=== PATIENT | male | born 1990 | race Hispanic/Latino ===

== ENCOUNTER 2017-07-24 14:51 | Inpatient (IN) | payer MEDICARE, MEDICAID ==
[2017-07-24 14:51] VITALS: BMI 31.1
--- NOTE | 2017-07-24 15:22 | C.PDOC ---
History Of Present Illness 26-YEAR-OLD MALE, PRESENTS TO THE EMERGENCY DEPARTMENT WITH COMPLAINTS OF HEARING VOICES THAT ARE TELLING HIM TO HURT HIMSELF. PATIENT ADMITS TO SUICIDAL IDEATION BUT HAS NO PLAN. PATIENT HAS NOT TAKEN ANY MEDICATION SINCE 04/05. HE TRIES TO FOLLOW UP OUTPATIENT BUT STATES NO ONE WANTS HIM. DENIES HOMICIDAL IDEATION. EXAM CALM, COOPERATIVE ACTIVE AUDITORY HALLUCINATIONS Time Seen by Provider: 07/24/17 15:18 Chief Complaint (Nursing): Psychiatric Evaluation History Per: Patient History/Exam Limitations: no limitations Onset/Duration Of Symptoms: Days Current Symptoms Are (Timing): Still Present Past Medical History Reviewed: Historical Data, Nursing Documentation, Vital Signs Vital Signs: Last Vital Signs Temp 97.8 F 07/24/17 14:55 Pulse 94 H 07/24/17 14:55 Resp 16 07/24/17 14:55 BP 135/85 07/24/17 14:55 Pulse Ox 95 07/24/17 16:27 - Medical History PMH: Anxiety, Arthritis, Asthma, Bipolar Disorder, Depression, Migraine, Post Traumatic Stress Disorder, Chronic Kidney Disease (alleged chronic kidney disease), Schizophrenia - [facility] Procedures DRUG ADDICT COUNSELLING (12/30/14) EXCISION OF TOE NAIL, EXTERNAL APPROACH (10/08/16) EXTRACTION OF TOE NAIL, EXTERNAL APPROACH (11/30/16) GROUP PSYCHOTHERAPY (04/13/17) INDIVID PSYCHOTHERAP NEC (08/12/14) INDIVIDUAL PSYCHOTHERAPY, BEHAVIORAL (10/30/16) INDIVIDUAL PSYCHOTHERAPY, COGNITIVE-BEHAVIORAL (09/11/16) INDIVIDUAL PSYCHOTHERAPY, SUPPORTIVE (03/02/16) INTRODUCTION OF SERUM/TOX/VACCINE INTO MUSCLE, PERC APPROACH (09/11/16) MEDICATION MANAGEMENT (10/08/16) OTHER GROUP THERAPY (12/30/14) PSYCHIAT DRUG THERAP NEC (07/08/14) Family History: States: Unknown Family Hx - Social History Hx Tobacco Use: Yes Hx Alcohol Use: No Hx Substance Use: Yes - Immunization History Hx Tetanus Toxoid Vaccination: Yes Hx Influenza Vaccination: Yes Hx Pneumococcal Vaccination: No Review Of Systems Except As Marked, All Systems Reviewed And Found Negative. Constitutional: Negative for: Fever Cardiovascular: Negative for: Chest Pain Respiratory: Negative for: Shortness of Breath Gastrointestinal: Negative for: Vomiting Musculoskeletal: Negative for: Back Pain Neurological: Negative for: Weakness, Numbness Psych: Positive for: Suicidal ideation Physical Exam - Physical Exam Appears: Non-toxic, No Acute Distress, Other (CALM, COOPERATIVE) Skin: Warm, Dry, No Rash Head: Atraumatic, Normacephalic Eye(s): bilateral: Normal Inspection Nose: Normal Oral Mucosa: Moist Lips: Normal Appearing Neck: Normal ROM Chest: Symmetrical Cardiovascular: Rhythm Regular, No Murmur Respiratory: Normal Breath Sounds, No Accessory Muscle Use Extremity: Normal ROM Neurological/Psych: Oriented x3, Normal Speech ED Course And Treatment - Laboratory Results Result Diagrams: 07/24/17 16:00 07/24/17 16:00 O2 Sat by Pulse Oximetry: 95 (RA) Pulse Ox Interpretation: Normal Progress - Re-Evaluation Re-evaluation Note: 07/24/17 16:27 MED CLEAR FOR PSYCH EVAL. CRISIS NOTIFIED - Data Reviewed Data Reviewed: Lab, Old records Disposition - Disposition Disposition: HOSPITALIZED Disposition Time: 17:00 Condition: STABLE Forms: [facility] (Icelandic) - POA Present On Arrival: None - Clinical Impression Clinical Impression: Schizoaffective disorder - Scribe Statement The provider has reviewed the documentation as recorded by the Scribe (Kaity Salamanca) All medical record entries made by the Scribe were at my direction and personally dictated by me. I have reviewed the chart and agree that the record accurately reflects my personal performance of the history, physical exam, medical decision making, and the department course for this patient. I have also personally directed, reviewed, and agree with the discharge instructions and disposition. Decision To Admit - Pt Status Changed To: Hospital Disposition Of: Inpatient - Admit Certification Admit to Inpatient:: After my assessment, the patient will require hospitalization for at least two midnights. This is because of the severity of symptoms shown, intensity of services needed, and/or the medical risk in this patient being treated as an outpatient. - InPatient: Physician Admission Certification: I certify that this patient requires 2 or more midnights of care for the following reason:: SEE NOTE - . Bed Request Type: Psychiatry Admitting Physician: Tamie Canales Patient Diagnosis: Schizoaffective disorder
[2017-07-24 16:04] LABS: BASO # 0.1 K/uL (0.0-0.2); BASO % 0.6 % (0.0-2.0); EOS # 0.2 K/uL (0.0-0.7); EOS % 1.5 % (0.0-4.0); HEMOGLOBIN 15.5 g/dL (12.0-18.0); LYMPH # 2.9 K/uL (1.0-4.3); LYMPH % 26.4 % (20.0-40.0); MEAN CORPUSCULAR HEMOGLOBIN 32.9 pg (27.0-31.0); MEAN PLATELET VOLUME 8.4 fL (7.2-11.7); MONO # 0.7 K/uL (0.0-0.8); MONO % 6.5 % (0.0-10.0); NEUT # 7.1 K/uL (1.8-7.0); RBC 4.73 Mil/uL (4.40-5.90); RED CELL DISTRIBUTION WIDTH 13.7 % (11.5-14.5); WHITE BLOOD COUNT 10.9 K/uL (4.8-10.8)
[2017-07-24 16:06] LABS: URINE BILIRUBIN NEGATIVE (NEGATIVE); URINE BLOOD NEGATIVE (NEGATIVE); URINE CLARITY Clear (Clear); URINE COLOR Yellow (YELLOW); URINE GLUCOSE (UA) NORMAL (Normal); URINE LEUKOCYTE ESTERASE NEG Leu/uL (Negative); URINE NITRATE NEGATIVE (NEGATIVE); URINE PROTEIN NEGATIVE (NEGATIVE)
[2017-07-24 16:18] LABS: ALB/GLOB RATIO 1.4 (1.0-2.1); ALBUMIN 4.3 g/dL (3.5-5.0); ALT/SGPT 27 U/L (21-72); AST/SGOT 28 U/L (17-59); BLOOD UREA NITROGEN 12 mg/dL (9-20); CALCIUM 9.6 mg/dl (8.6-10.4); GFR AFRICAN-AMERICAN > 60; GFR NON-AFRICAN AMERICAN > 60
[2017-07-24 16:24] LABS: BARBITURATES, UR NEGATIVE (NEGATIVE); BENZODIAZEPINES, UR NEGATIVE (NEGATIVE); OPIATES, UR NEGATIVE (NEGATIVE); PHENCYCLIDINE, UR NEGATIVE (NEGATIVE)
--- NOTE | 2017-07-24 18:39 | PCM.BM ---
<Nyasia Park - Last Filed: 07/24/17 18:37> Treatment Plan Problems - Problems identified on initial assessmt Auditory Hallucination Date Initiated: 07/24/17 Time Initiated: 18:38 Assessment reference: NA Status: Active Suicidal Ideation Date Initiated: 07/24/17 Time Initiated: 18:38 Assessment reference: NA Status: Active Treatment assets and liabiliti Patient Assests: adapts well, educated, ADL independent, physically healthy, negotiates basic needs, cognitively intact Patient Liabilities: live alone, financial problems, substance abuse ([place], + THC), medical problems (Hx Asthma, Migraine) - Milieu Protocol Maintain good personal hygiene: daily Encourage regular showers, daily Remind patient to perform daily oral care, other Assist patient to perform ADL's (Self) Conduct patient checks and document Observation sheet: Q15 minutes (For safety) Maintain personal safety: every shift Educate patient to report safety concerns to staff, every shift Monitor environment for contraband/sharps Medication safety: Monitor for expected outcome, potential side effects: every shift, Assess barriers to learning: every shift, Assess readiness for medication education: every shift <Josephine Sharp - Last Filed: 07/25/17 10:57> Family Contact Family involvement: Famliy/SO not involved - Goals for Treatment Patient goals for treatment: "I need my meds." Discharge/Continuing Care - Education Needs Education Needs: Patient Medication, Patient Coping Skills - Discharge Discharge Criteria: Tolerates medication w/o severe side effects, Free of Suicidal thoughts, Reduction of target symptoms Discharge to:: Home - Treatment Team Participation Discussed with Family/SO: No Was Patient/Family/SO present at Treatment Team Meeting: Yes <Tamie Canales - Last Filed: 07/25/17 11:03> - Diagnosis (1) Schizoaffective disorder Status: Acute Interventions: 07/25/17 11:02 * Assess/adjust medications daily and /or as needed * See patient on an individual basis 7x/week to assess status of hallucinations * Discuss risks, benefits, side effects and alternatives of medications * (2) Cannabis abuse Status: Chronic Interventions: 07/25/17 11:03 * Assess 7x/week regarding severity of withdrawal * Educate regarding risks, benefits, side effects and alternatives of medications * Use Motivational Interviewing for abstinence * Use CBT for relapse prevention * Medication management for withdrawal symptoms * Encourage medication assisted treatment *
[2017-07-24] MEDS ORDERED: Albuterol HFA 90 mcg/actuation (8 g) INH PRN (18:58)
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
[2017-07-26 06:09] VITALS: O2SAT 98
--- NOTE | 2017-07-26 15:54 | PCM.PYCHPN ---
Psychiatric Progress Note - Psychiatric Progress Note Patient seen today, length of contact: 15 min Patient Chief Complaint: "I'm still feeling down and still hearing voices." Problems Identified/Issues Discussed: Patient seen and evaluated, chart reviewed and discussed with the nurse. Patient remained disorganized and internally preoccupied. Patient still appears paranoid and delusional. He reports depressed mood and feelings of hopelessness and helplessness. Patient remained isolated, confined and withdrawn. Pt c/o KEITH and nausea following geodon, states he will not take anymore geodon moving forward because the motrin he was given for the KEITH didnt help and he prefers excedrin. He is still hearing voices- they whisper my name all night long. Pt wants to go to [facility] in [facility] after D/C. Symptoms are improving but need more time to stabilize. Support and psychoeducation given. Medication Change: Yes (Increase thorazine) Medical Record Reviewed: Yes Mental Status Examination - Cognitive Function Orientation: Person, Place, Situation, Time Memory: Intact Attention: WNL Concentration: Poor Association: Loose Fund of Knowledge: Poor - Mood Mood: Depressed, Anxious - Affect Affect: Flat - Speech Speech: Appropriate - Formal Thought Process Formal Thought Process: Hallucinations, Delusions, Paranoia, Loosening of associations - Suicidal Ideation Suicidal Ideation: No - Homicidal Ideation Homicidal Ideation: No Goal/Treatment Plan - Goal/Treatment Plan Need for Continued Stay: Remain at risks for inpatient hospitalization, Severe functional impairment Progress Toward Problem(s) and Goals/Treatment Plan: Schizoaffective disorder -bipolar type -CBT -Psychoeducation -Supportive therapy, group therapy, individual therapy -Geodone 20 mg by mouth twice daily -Thorazine 100 mg PO HS -Other medications as needed -Start Chlorpromazine 50 mg PO Daily Cannabis use disorder severe -CBT -Psychoeducation Estimated Date of D/C: 08/01/17 - Smoking Cessation Smoking Cessation Initiated: No
[2017-07-27 06:41] VITALS: RESP 18; TEMP 97.6
[2017-07-27 08:22] VITALS: BP 107/75; PULSE 78
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
== END 2017-07-27 11:16 | disposition home or self-care (01) | DRG 885 ==
LOC: C.ER 14:51 → C.5E 17:00
PROVIDERS: ADMIT Psychiatry & Neurology Psychiatry; ATTEND Psychiatry & Neurology Psychiatry
PROC: GZ56ZZZ Individual Psychotherapy, Supportive (ICD-10-PCS; principal; 2017-07-24)
DX: F25.0 Schizoaffective disorder, bipolar type (principal); Z91.14 Patient's other noncompliance with medication regimen; F12.10 Cannabis abuse, uncomplicated; J45.909 Unspecified asthma, uncomplicated; Z87.891 Personal history of nicotine dependence

== ENCOUNTER 2017-08-13 08:33 | Emergency (ER) | payer MEDICARE, MEDICAID ==
[2017-08-13 08:34] VITALS: BMI 31.7
[2017-08-13] MEDS ORDERED: Sodium Chloride 0.9% 1,000 ML IV ONE (09:37)
[2017-08-13 10:13] LABS: BASO # 0.2 K/uL (0.0-0.2); BASO % 1.2 % (0.0-2.0); EOS # 0.2 K/uL (0.0-0.7); EOS % 1.1 % (0.0-4.0); HEMOGLOBIN 14.4 g/dL (12.0-18.0); LYMPH # 2.8 K/uL (1.0-4.3); LYMPH % 20.1 % (20.0-40.0); MEAN CELL VOLUME 93.6 fL (80.0-94.0); MEAN CORPUSCULAR HEMOGLOBIN 32.3 pg (27.0-31.0); MEAN CORPUSCULAR HGB CONC 34.6 g/dL (33.0-37.0); MONO % 7.6 % (0.0-10.0); NEUT # 9.6 K/uL (1.8-7.0); RBC 4.45 Mil/uL (4.40-5.90); RED CELL DISTRIBUTION WIDTH 13.4 % (11.5-14.5); WHITE BLOOD COUNT 13.7 K/uL (4.8-10.8)
[2017-08-13] MEDS ORDERED: Sodium Chloride 0.9% 1,000 ML ONE (10:13)
[2017-08-13 10:24] LABS: ALB/GLOB RATIO 1.4 (1.0-2.1); ALBUMIN 4.2 g/dL (3.5-5.0); ALT/SGPT 31 U/L (21-72); AST/SGOT 37 U/L (17-59); BLOOD UREA NITROGEN 15 mg/dL (9-20); CALCIUM 9.4 mg/dl (8.6-10.4); GFR AFRICAN-AMERICAN > 60; GFR NON-AFRICAN AMERICAN > 60; LIPASE 181 U/L (23-300)
[2017-08-13 11:08] VITALS: BP 124/79; PULSE 89; RESP 16; TEMP 97.9; O2SAT 100
--- NOTE | 2017-08-13 11:29 | C.PDOC ---
History Of Present Illness 26 y/o male presents to ED with complaints of 3 episodes of vomiting and abdominal pain that began last night. Patient reports that he noted small streak of blood in vomitus. Denies fever or cough. Chief Complaint (Nursing): GI Problem History Per: Patient History/Exam Limitations: no limitations Onset/Duration Of Symptoms: Hrs Current Symptoms Are (Timing): Still Present Radiation Of Pain To:: None Quality Of Discomfort: Unable To Describe Associated Symptoms: Vomiting (3 episodes ). denies: Fever, Chills Exacerbating Factors: None Alleviating Factors: None Recent travel outside of the [place]: No Past Medical History Reviewed: Historical Data, Nursing Documentation, Vital Signs Vital Signs: Last Vital Signs Temp 97.9 F 08/13/17 11:07 Pulse 89 08/13/17 11:07 Resp 16 08/13/17 11:07 BP 124/79 08/13/17 11:07 Pulse Ox 100 08/13/17 11:32 - Medical History PMH: Anxiety, Arthritis, Asthma, Bipolar Disorder, Depression, Migraine, Post Traumatic Stress Disorder - [facility] Procedures DRUG ADDICT COUNSELLING (12/30/14) EXCISION OF TOE NAIL, EXTERNAL APPROACH (10/08/16) EXTRACTION OF TOE NAIL, EXTERNAL APPROACH (11/30/16) GROUP PSYCHOTHERAPY (04/13/17) INDIVID PSYCHOTHERAP NEC (08/12/14) INDIVIDUAL PSYCHOTHERAPY, BEHAVIORAL (10/30/16) INDIVIDUAL PSYCHOTHERAPY, COGNITIVE-BEHAVIORAL (09/11/16) INDIVIDUAL PSYCHOTHERAPY, SUPPORTIVE (07/24/17) INTRODUCTION OF SERUM/TOX/VACCINE INTO MUSCLE, PERC APPROACH (09/11/16) MEDICATION MANAGEMENT (10/08/16) OTHER GROUP THERAPY (12/30/14) PSYCHIAT DRUG THERAP NEC (07/08/14) Family History: States: Unknown Family Hx - Social History Hx Tobacco Use: Yes Hx Alcohol Use: No Hx Substance Use: Yes - Immunization History Hx Tetanus Toxoid Vaccination: Yes Hx Influenza Vaccination: Yes Hx Pneumococcal Vaccination: No Review Of Systems Constitutional: Negative for: Fever, Chills Cardiovascular: Negative for: Chest Pain Respiratory: Negative for: Cough, Shortness of Breath Gastrointestinal: Positive for: Vomiting (noted small streak of blood ), Abdominal Pain. Negative for: Diarrhea Neurological: Negative for: Weakness, Numbness Physical Exam - Physical Exam Appears: Well, Non-toxic, No Acute Distress Skin: Normal Color, Warm, Dry Head: Atraumatic, Normacephalic Eye(s): bilateral: Normal Inspection Oral Mucosa: Moist Neck: Supple Chest: Symmetrical, No Tenderness Cardiovascular: Rhythm Regular Respiratory: Normal Breath Sounds, No Decreased Breath Sounds, No Rales, No Rhonchi, No Wheezing Gastrointestinal/Abdominal: Soft, No Tenderness, No Distention, No Guarding, No Rebound Neurological/Psych: Oriented x3, Normal Speech, Normal Cognition ED Course And Treatment - Laboratory Results Result Diagrams: 08/13/17 10:05 08/13/17 10:05 O2 Sat by Pulse Oximetry: 100 (RA) Pulse Ox Interpretation: Normal Medical Decision Making Medical Decision Making: Ordered blood work. Administered Antivert, Pepcid, Reglan and IV fluids. Disposition - Disposition Referrals: [facility] [Outside] [facility] [Outside] Disposition: HOME/ ROUTINE Disposition Time: 10:25 Condition: IMPROVED Additional Instructions: Thank you for letting us take care of you today. The emergency medical care you received today was directed at your acute symptoms. If you were prescribed any medication, please fill it and take as directed. It may take several days for your symptoms to resolve. Return to the Emergency Department if your symptoms worsen, do not improve, or if you have any other problems. Please contact your doctor or call one of the physicians/clinics you have been referred to that are listed on the Patient Visit Information form that is included in your discharge packet. Bring any paperwork you were given at discharge with you along with any medications you are taking to your follow up visit. Our treatment cannot replace ongoing medical care by a primary care provider (PCP) outside of the emergency department. Thank you for allowing the [facility] team to be part of your care today. Follow up with the clinic this week for outpatient care. Follow up with your staff midwife/apprenticeship director this week as scheduled. Prescriptions: Gabapentin [Neurontin] 300 mg PO DAILY #5 cap Meclizine [Meclizine*] 25 mg PO Q6 PRN #20 tab PRN Reason: Dizziness Ranitidine HCl [Zantac] 150 mg PO BID #20 tablet Instructions: Gastritis Forms: [facility] (Monegasque) - Clinical Impression Clinical Impression: Gastritis - Scribe Statement The provider has reviewed the documentation as recorded by the Scribe Ayaka Lane All medical record entries made by the Scribe were at my direction and personally dictated by me. I have reviewed the chart and agree that the record accurately reflects my personal performance of the history, physical exam, medical decision making, and the department course for this patient. I have also personally directed, reviewed, and agree with the discharge instructions and disposition.
== END 2017-08-13 11:09 | disposition home or self-care (01) ==
LOC: C.ER 08:33
DX: K29.70 Gastritis, unspecified, without bleeding (principal); Z72.0 Tobacco use
CPT/HCPCS: 80053; 83690; 85025; 96361; 96374; 96375; 99285; J2765; J7040

== ENCOUNTER 2017-08-27 23:38 | Inpatient (IN) | payer MEDICARE, MEDICAID ==
[2017-08-27 23:39] VITALS: BMI 31.7
[2017-08-27 23:47] VITALS: O2SAT 96
--- NOTE | 2017-08-28 00:59 | C.PDOC ---
History Of Present Illness Patient seen tonite due to episode of depression and suicidal ideation. Time Seen by Provider: 08/28/17 00:59 Chief Complaint (Nursing): Psychiatric Evaluation History Per: Patient History/Exam Limitations: no limitations Onset/Duration Of Symptoms: Days Current Symptoms Are (Timing): Still Present Suicide/Self Injury Attempted (Context): None Modifying Factor(s): None Severity: Moderate Pain Scale Rating Of: 0 Associated Symptoms: Depression, Suicidal Plan Involuntary Hold By: None Recent travel outside of the [place]: No Past Medical History Vital Signs: Last Vital Signs Temp 97.5 F L 08/27/17 23:41 Pulse 75 08/27/17 23:41 Resp 20 08/27/17 23:41 BP 118/82 08/27/17 23:41 Pulse Ox 96 08/28/17 04:26 - Medical History PMH: Anxiety, Arthritis, Asthma, Bipolar Disorder, Depression, Migraine, Post Traumatic Stress Disorder Denies: Diabetes, Hepatitis, HIV, HTN, Chronic Kidney Disease, Schizophrenia , Seizures, Sexually Transmitted Disease Surgical History: No Surg Hx - [facility] Procedures DRUG ADDICT COUNSELLING (12/30/14) EXCISION OF TOE NAIL, EXTERNAL APPROACH (10/08/16) EXTRACTION OF TOE NAIL, EXTERNAL APPROACH (11/30/16) GROUP PSYCHOTHERAPY (04/13/17) INDIVID PSYCHOTHERAP NEC (08/12/14) INDIVIDUAL PSYCHOTHERAPY, BEHAVIORAL (10/30/16) INDIVIDUAL PSYCHOTHERAPY, COGNITIVE-BEHAVIORAL (09/11/16) INDIVIDUAL PSYCHOTHERAPY, SUPPORTIVE (07/24/17) INTRODUCTION OF SERUM/TOX/VACCINE INTO MUSCLE, PERC APPROACH (09/11/16) MEDICATION MANAGEMENT (10/08/16) OTHER GROUP THERAPY (12/30/14) PSYCHIAT DRUG THERAP NEC (07/08/14) Family History: States: Unknown Family Hx - Social History Hx Tobacco Use: Yes Hx Alcohol Use: No Hx Substance Use: Yes - Immunization History Hx Tetanus Toxoid Vaccination: Yes Hx Influenza Vaccination: Yes Hx Pneumococcal Vaccination: No Review Of Systems Constitutional: Negative for: Fever, Chills, Sweats ENT: Negative for: Ear Pain, Ear Discharge, Nose Pain, Nose Discharge Cardiovascular: Negative for: Chest Pain, Palpitations, Orthopnea, Edema, Light Headedness Respiratory: Negative for: Cough, Shortness of Breath, Hemoptysis Gastrointestinal: Negative for: Nausea, Vomiting, Abdominal Pain, Diarrhea Genitourinary: Negative for: Dysuria, Frequency, Incontinence Musculoskeletal: Negative for: Neck Pain, Shoulder Pain, Arm Pain Skin: Negative for: Rash, Lesions Neurological: Negative for: Weakness, Numbness, Incoordination, Change in Speech , Confusion, Seizures, Altered Mental Status, Headache, Dizziness Psych: Positive for: Depression, Suicidal ideation Physical Exam - Physical Exam Appears: Well, No Acute Distress Skin: Normal Color, Warm, Dry Head: Atraumatic Eye(s): bilateral: Normal Inspection, PERRL, EOMI Nose: Normal Oral Mucosa: Moist Tongue: Normal Appearing Throat: Normal Neck: Normal Chest: Symmetrical, No Deformity, No Tenderness Cardiovascular: Rhythm Regular Respiratory: Normal Breath Sounds Gastrointestinal/Abdominal: Normal Exam Back: Normal Inspection Extremity: Normal ROM ED Course And Treatment - Laboratory Results Result Diagrams: 08/28/17 01:42 08/28/17 01:42 O2 Sat by Pulse Oximetry: 96 Disposition Discussed With : Vonda Saha Doctor Will See Patient In The: Hospital Counseled Patient/Family Regarding: Diagnosis - Disposition Disposition: HOSPITALIZED Disposition Time: 04:26 Condition: STABLE Forms: [facility] ([place]ese) - Clinical Impression Clinical Impression: Schizo affective schizophrenia
[2017-08-28 01:45] LABS: BASO # 0.1 K/uL (0.0-0.2); BASO % 0.6 % (0.0-2.0); EOS # 0.3 K/uL (0.0-0.7); EOS % 3.1 % (0.0-4.0); HEMOGLOBIN 15.4 g/dL (12.0-18.0); LYMPH # 4.1 K/uL (1.0-4.3); LYMPH % 40.2 % (20.0-40.0); MEAN CELL VOLUME 93.7 fL (80.0-94.0); MEAN CORPUSCULAR HEMOGLOBIN 32.5 pg (27.0-31.0); MEAN CORPUSCULAR HGB CONC 34.7 g/dL (33.0-37.0); MEAN PLATELET VOLUME 8.3 fL (7.2-11.7); MONO # 0.8 K/uL (0.0-0.8); MONO % 8.1 % (0.0-10.0); NEUT # 4.9 K/uL (1.8-7.0); NRBC % 0.1 % (0.0-2.0); RBC 4.73 Mil/uL (4.40-5.90); RED CELL DISTRIBUTION WIDTH 13.6 % (11.5-14.5); WHITE BLOOD COUNT 10.2 K/uL (4.8-10.8)
[2017-08-28 01:58] LABS: ALB/GLOB RATIO 1.5 (1.0-2.1); ALBUMIN 4.3 g/dL (3.5-5.0); ALT/SGPT 42 U/L (21-72); AST/SGOT 25 U/L (17-59); BLOOD UREA NITROGEN 14 mg/dL (9-20); CALCIUM 9.2 mg/dl (8.6-10.4); GFR AFRICAN-AMERICAN > 60; GFR NON-AFRICAN AMERICAN > 60
[2017-08-28 03:02] LABS: URINE BILIRUBIN NEGATIVE (NEGATIVE); URINE BLOOD NEGATIVE (NEGATIVE); URINE CLARITY Clear (Clear); URINE COLOR Yellow (YELLOW); URINE GLUCOSE (UA) NORMAL (Normal); URINE LEUKOCYTE ESTERASE TRACE Leu/uL (Negative); URINE PROTEIN NEGATIVE (NEGATIVE); URINE UROBILINOGEN NORMAL mg/dL (0.2-1.0)
[2017-08-28 03:06] LABS: BARBITURATES, UR NEGATIVE (NEGATIVE); BENZODIAZEPINES, UR NEGATIVE (NEGATIVE); OPIATES, UR NEGATIVE (NEGATIVE)
[2017-08-28 03:23] LABS: PHENCYCLIDINE, UR POSITIVE (NEGATIVE)
--- NOTE | 2017-08-28 06:27 | PCM.BM ---
<Kacy Lopez - Last Filed: 08/28/17 06:26> Treatment Plan Problems - Problems identified on initial assessmt Auditory Hallucinations Date Initiated: 08/28/17 Time Initiated: 05:55 Assessment reference: NA Status: Active Depression Date Initiated: 08/28/17 Time Initiated: 05:55 Assessment reference: NA Status: Active Treatment assets and liabiliti Patient Assests: adapts well, cooperative, educated, ADL independent, physically healthy, negotiates basic needs, cognitively intact Patient Liabilities: poor support system ("No family or friends who provide emotional support"), substance abuse (PCP, Marijuana), medical problems, auditory impairment, language/speech - Milieu Protocol Maintain good personal hygiene: daily Encourage regular showers, daily Remind patient to perform daily oral care Conduct patient checks and document Observation sheet: Q15 minutes Maintain personal safety: every shift Educate patient to report safety concerns to staff, every shift Monitor environment for contraband/sharps Medication safety: Monitor for expected outcome, potential side effects: every shift, Assess barriers to learning: every shift, Assess readiness for medication education: every shift <Josephine Sharp - Last Filed: 08/29/17 10:50> Family Contact Family involvement: Family/SO is involved - Goals for Treatment Patient goals for treatment: "I want to leave." Discharge/Continuing Care - Education Needs Education Needs: Patient Medication, Patient Coping Skills - Discharge Discharge Criteria: Tolerates medication w/o severe side effects, Reduction of target symptoms Discharge to:: Long Term - Treatment Team Participation Discussed with Family/SO: No Was Patient/Family/SO present at Treatment Team Meeting: No (Pt refused to sign treatment plan.) <Vi Harman - Last Filed: 08/30/17 23:26> - Diagnosis (1) Schizoaffective disorder Status: Acute Interventions: 08/30/17 23:25 * Assess/adjust medications daily and /or as needed * See patient on an individual basis 7x/week to assess symptoms of depression * Monitor for side effects & effectiveness of medications * (2) Borderline personality disorder Status: Chronic Interventions: 08/30/17 23:25 * Assess/adjust medications daily and /or as needed * See patient on an individual basis 7x/week to assess level of manic behaviors and stability * Discuss risks, benefits, side effects and alternatives of medications *
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
[2017-08-29] MEDS ORDERED: Venlafaxine 37.5 mg ER Cap PO SCH (10:00)
--- NOTE | 2017-08-29 10:05 | PCM.PYCHDC ---
Mental Status Examination - Mental Status Examination Orientation: Person, Place, Situation, Time Memory: Intact Mood: Other (irate) Affect: Broad Speech: Appropriate Attention: WNL Concentration: WNL Language: Word Retrieval Association: WNL Fund of Knowledge: WNL Formal Thought Process: No Impairment Description of patient's judgement and insight: Poor Psychotic Thoughts and Behaviors: None Suicidal Ideation: No Current Homicidal Ideation?: No Discharge Summary - Discharge Note Reason for Hospitalization: Feeling depressed and hearing voices. Consultations:: List each consultation separately and include: 1. Reason for request. 2. Findings. 3. Follow-up Summary of Hospital Course include:: 1. Description of specific treatment plan utilized for patients during their course of treatmen. 2. Summarize the time- course for resolution of acute symptoms and/or regressed behaviors. 3. Describe issues identified and worked on during hospitalization. 4. Describe medication utilized. 5. Describe medical problems identified and treated. 6. Reassessment of suicide risk Summary of Hospital Course: The pt was admitted and plan was made to start treatment with psychotherapy, support, psychoeducation and medications. Patient became agitated and began arguing with patients and staff. This is not uncommon for this patient. The pt did not attend groups and activities, as well as milieu therapy. The pt did not stay for recommended length of time in order to show improvement with the treatments provided. He put in a 48 hr notice. Denied any suicidal or homicidal ideations at the time of discharge. After care discussed with the patient. He is also advised to get intensive individual psychotherapy and he agreed. - Final Diagnosis (DSM 5) Condition upon Discharge: STABLE DSM 5: Schizoaffective disorder r/o Malingering Borderline Personality d/o Antisocial personality d/o Disposition: AGAINST MEDICAL ADVICE Follow-up Treatment Plan: Follow after care plan as discussed. Use relapse prevention skills Return to ER or call 911 if suicidal, homicidal or symptoms relapse. Stay away from stress, alcohol and drugs. See primary doctor regularly and get labs. - Smoking Cessation Smoking Cessation Medication prescribed: No - Antipsychotic Medications Pt discharged on 2 or more routine antipsychotic medications: No
[2017-08-29 11:30] VITALS: BP 110/79; PULSE 82; RESP 20; TEMP 97.6
== END 2017-08-29 10:55 | disposition left against medical advice (07) | DRG 885 ==
LOC: C.ER 23:38 → C.5E 08-28 05:26
PROVIDERS: ADMIT Psychiatry & Neurology Psychiatry; ATTEND Psychiatry & Neurology Psychiatry
PROC: GZHZZZZ Group Psychotherapy (ICD-10-PCS; principal; 2017-08-28)
PROC: GZ56ZZZ Individual Psychotherapy, Supportive (ICD-10-PCS; 2017-08-28)
DX: F25.1 Schizoaffective disorder, depressive type (principal); R45.851 Suicidal ideations; F43.10 Post-traumatic stress disorder, unspecified; F17.210 Nicotine dependence, cigarettes, uncomplicated; F31.9 Bipolar disorder, unspecified; F41.9 Anxiety disorder, unspecified; J45.909 Unspecified asthma, uncomplicated; G43.909 Migraine, unspecified, not intractable, without status migrainosus

== ENCOUNTER 2018-01-12 15:09 | Emergency (ER) | payer MEDICARE, MEDICAID ==
[2018-01-12 15:10] VITALS: BMI 32.0
[2018-01-12 15:16] VITALS: RESP 18
--- NOTE | 2018-01-12 15:27 | C.PDOC ---
History Of Present Illness 27 y/o male presents to ED with c/o feeling depressed, stating he wants to jump in front of car. Patient denies HI, auditory or visual hallucinations. No other complications at this time. Time Seen by Provider: 01/12/18 15:18 Chief Complaint (Nursing): Psychiatric Evaluation History Per: Patient History/Exam Limitations: no limitations Onset/Duration Of Symptoms: Days Current Symptoms Are (Timing): Still Present Suicide/Self Injury Attempted (Context): None Associated Symptoms: Depression, Suicidal Thoughts Past Medical History Reviewed: Historical Data, Nursing Documentation, Vital Signs Vital Signs: Last Vital Signs Temp 98.8 F 01/12/18 18:13 Pulse 88 01/12/18 18:13 Resp 18 01/12/18 18:13 BP 143/87 01/12/18 18:13 Pulse Ox 100 01/12/18 18:13 - Medical History PMH: Anxiety, Arthritis, Asthma, Bipolar Disorder, Depression, Migraine, Post Traumatic Stress Disorder, Schizophrenia Surgical History: No Surg Hx - [facility] Procedures DRUG ADDICT COUNSELLING (12/30/14) EXCISION OF TOE NAIL, EXTERNAL APPROACH (10/08/16) EXTRACTION OF TOE NAIL, EXTERNAL APPROACH (11/30/16) GROUP PSYCHOTHERAPY (11/29/17) INDIVID PSYCHOTHERAP NEC (08/12/14) INDIVIDUAL PSYCHOTHERAPY, BEHAVIORAL (11/29/17) INDIVIDUAL PSYCHOTHERAPY, COGNITIVE-BEHAVIORAL (09/11/16) INDIVIDUAL PSYCHOTHERAPY, SUPPORTIVE (08/28/17) INTRODUCTION OF SERUM/TOX/VACCINE INTO MUSCLE, PERC APPROACH (09/11/16) MEDICATION MANAGEMENT (10/08/16) OTHER GROUP THERAPY (12/30/14) PSYCHIAT DRUG THERAP NEC (07/08/14) Family History: States: No Known Family Hx - Social History Hx Tobacco Use: Yes Hx Alcohol Use: No Hx Substance Use: Yes (PCP, Marijuana) - Immunization History Hx Tetanus Toxoid Vaccination: Yes Hx Influenza Vaccination: Yes Hx Pneumococcal Vaccination: No Review Of Systems Constitutional: Negative for: Fever, Chills Cardiovascular: Negative for: Chest Pain Respiratory: Negative for: Shortness of Breath Psych: Positive for: Depression, Suicidal ideation. Negative for: Withdrawal Physical Exam - Physical Exam Appears: Non-toxic, No Acute Distress Skin: Warm, Dry, No Rash Head: Atraumatic, Normacephalic Eye(s): bilateral: Normal Inspection Oral Mucosa: Moist Neck: Normal ROM, Supple Cardiovascular: Rhythm Regular Respiratory: Normal Breath Sounds, No Rales, No Rhonchi, No Wheezing Gastrointestinal/Abdominal: Soft, No Tenderness, No Guarding, No Rebound Back: No CVA Tenderness Extremity: Normal ROM, Capillary Refill (<2 seconds) Neurological/Psych: Oriented x3, Normal Speech, Normal Cognition ED Course And Treatment - Laboratory Results Result Diagrams: 01/12/18 16:30 01/12/18 16:30 O2 Sat by Pulse Oximetry: 96 (RA) Pulse Ox Interpretation: Normal Medical Decision Making Medical Decision Making: Patient medically cleared @1700 cleared by crisis for dc. Disposition - Disposition Disposition: HOME/ ROUTINE Disposition Time: 06:00 Condition: STABLE Additional Instructions: please follow up as instructed by adult protective caseworker. return to er with worsening symptoms or concerns. Instructions: Depression, Depression, Adult (DC), Suicide Prevention Forms: [facility] (Danish) - Clinical Impression Clinical Impression: Depression - Scribe Statement The provider has reviewed the documentation as recorded by the Bekahibjero Hernandez All medical record entries made by the Bekahibjero were at my direction and personally dictated by me. I have reviewed the chart and agree that the record accurately reflects my personal performance of the history, physical exam, medical decision making, and the department course for this patient. I have also personally directed, reviewed, and agree with the discharge instructions and disposition.
[2018-01-12 16:36] LABS: BASO # 0.1 K/uL (0.0-0.2); BASO % 0.7 % (0.0-2.0); EOS # 0.2 K/uL (0.0-0.7); EOS % 1.7 % (0.0-4.0); LYMPH # 2.5 K/uL (1.0-4.3); LYMPH % 26.8 % (20.0-40.0); MEAN CELL VOLUME 93.5 fL (80.0-94.0); MEAN CORPUSCULAR HEMOGLOBIN 31.8 pg (27.0-31.0); MEAN PLATELET VOLUME 7.4 fL (7.2-11.7); MONO # 0.8 K/uL (0.0-0.8); NEUT % 62.8 % (50.0-75.0); NRBC % 0.1 % (0.0-2.0); RBC 4.7 Mil/uL (4.40-5.90); RED CELL DISTRIBUTION WIDTH 13.7 % (11.5-14.5); WHITE BLOOD COUNT 9.5 K/uL (4.8-10.8)
[2018-01-12 16:52] LABS: URINE BILIRUBIN NEGATIVE (NEGATIVE); URINE BLOOD NEGATIVE (NEGATIVE); URINE CLARITY Clear (Clear); URINE COLOR Yellow (YELLOW); URINE GLUCOSE (UA) NORMAL (Normal); URINE LEUKOCYTE ESTERASE NEG Leu/uL (Negative); URINE PROTEIN NEGATIVE (NEGATIVE)
[2018-01-12 16:52] LABS: ALB/GLOB RATIO 1.7 (1.0-2.1); ALBUMIN 4.5 g/dL (3.5-5.0); ALT/SGPT 39 U/L (21-72); AST/SGOT 36 U/L (17-59); BLOOD UREA NITROGEN 15 mg/dL (9-20); CALCIUM 9.5 mg/dl (8.6-10.4); GFR AFRICAN-AMERICAN > 60; GFR NON-AFRICAN AMERICAN > 60
[2018-01-12 16:59] LABS: ACETAMINOPHEN < 10.0 ug/mL (10.0-30.0); SALICYLATE < 1.0 mg/dL 1
[2018-01-12 17:09] LABS: BARBITURATES, UR NEGATIVE (NEGATIVE); BENZODIAZEPINES, UR NEGATIVE (NEGATIVE); OPIATES, UR NEGATIVE (NEGATIVE)
[2018-01-12 17:10] LABS: PHENCYCLIDINE, UR POSITIVE (NEGATIVE)
[2018-01-12 18:13] VITALS: BP 143/87; PULSE 88; TEMP 98.8
[2018-01-12 20:11] VITALS: O2SAT 96
== END 2018-01-12 18:13 | disposition home or self-care (01) ==
LOC: C.ER 15:09
DX: F32.9 Major depressive disorder, single episode, unspecified (principal)
CPT/HCPCS: 80053; 81001; 85025; 99284; G0480

== ENCOUNTER 2018-03-31 20:35 | Emergency (ER) | payer MEDICARE, OTHER ==
[2018-03-31 20:35] VITALS: BMI 32.0
[2018-03-31 20:48] VITALS: TEMP 98.4
[2018-03-31] MEDS ORDERED: Sodium Chloride 0.9% 1,000 ML IV ONE (20:57)
--- NOTE | 2018-03-31 21:05 | C.PDOC ---
History Of Present Illness 27-year-old male, presents to the emergency department with complaints of feeling unwell for the past week. States he feels dehydrated, congested and tired. Patient reports feeling "off-balance" and almost passed out today, prompting visit. Patient denies any fever, chills, cough, shortness of breath, nausea/vomiting, or any other associated symptoms. Time Seen by Provider: 03/31/18 20:51 Chief Complaint (Nursing): Dizziness/Lightheaded History Per: Patient History/Exam Limitations: no limitations Onset/Duration Of Symptoms: Days Past Medical History Reviewed: Historical Data, Nursing Documentation, Vital Signs Vital Signs: Last Vital Signs Temp 98.4 F 03/31/18 20:45 Pulse 78 03/31/18 20:45 Resp 14 03/31/18 20:45 BP 120/77 03/31/18 20:45 Pulse Ox 97 03/31/18 20:45 - Medical History PMH: Anxiety, Arthritis, Asthma, Bipolar Disorder, Depression, Migraine, Post Traumatic Stress Disorder, Schizophrenia - [facility] Procedures DRUG ADDICT COUNSELLING (12/30/14) EXCISION OF TOE NAIL, EXTERNAL APPROACH (10/08/16) EXTRACTION OF TOE NAIL, EXTERNAL APPROACH (11/30/16) GROUP PSYCHOTHERAPY (11/29/17) INDIVID PSYCHOTHERAP NEC (08/12/14) INDIVIDUAL PSYCHOTHERAPY, BEHAVIORAL (11/29/17) INDIVIDUAL PSYCHOTHERAPY, COGNITIVE-BEHAVIORAL (09/11/16) INDIVIDUAL PSYCHOTHERAPY, SUPPORTIVE (08/28/17) INTRODUCTION OF SERUM/TOX/VACCINE INTO MUSCLE, PERC APPROACH (09/11/16) MEDICATION MANAGEMENT (10/08/16) OTHER GROUP THERAPY (12/30/14) PSYCHIAT DRUG THERAP NEC (07/08/14) Family History: States: No Known Family Hx - Social History Hx Tobacco Use: Yes Hx Alcohol Use: No Hx Substance Use: Yes (PCP, Marijuana) - Immunization History Hx Tetanus Toxoid Vaccination: Yes Hx Influenza Vaccination: Yes Hx Pneumococcal Vaccination: No Review Of Systems Constitutional: Negative for: Fever Cardiovascular: Negative for: Chest Pain Respiratory: Negative for: Shortness of Breath Gastrointestinal: Negative for: Vomiting Neurological: Negative for: Weakness, Numbness, Headache Physical Exam - Physical Exam Appears: Non-toxic, No Acute Distress Skin: Warm, Dry, No Rash Head: Atraumatic, Normacephalic Eye(s): bilateral: Normal Inspection Nose: Normal Oral Mucosa: Moist Lips: Normal Appearing Neck: Normal ROM Chest: Symmetrical Cardiovascular: Rhythm Regular, No Murmur Respiratory: Normal Breath Sounds, No Accessory Muscle Use Gastrointestinal/Abdominal: Soft, No Tenderness Extremity: Normal ROM, No Deformity Neurological/Psych: Oriented x3, Normal Speech ED Course And Treatment - Laboratory Results Result Diagrams: 03/31/18 21:13 03/31/18 21:13 O2 Sat by Pulse Oximetry: 97 Pulse Ox Interpretation: Normal (RA) - CT Scan/US CT Head Other Rad Studies (CT/US): Read By Radiologist, Radiology Report Reviewed CT/US Interpretation: CT of the head. Clinical history: Headache. Technique: Multiple axial CT images were obtained through the head without administration of contrast. Comparison: None. Findings: The ventricles and sulci are symmetric bilaterally. There is no evidence of acute hemorrhage or infarct. There is no midline shift, mass effect, or extra-axial fluid collection. The osseous structures are unremarkable. The visualized paranasal sinuses and mastoid air cells are clear. Impression: Negative study. Medical Decision Making Medical Decision Making: Impression: lightheaded Plan: * CT Head * Bloodwork * Reglan, IVF * UA Progress: Labs reviewed and unremarkable 0100 CT shows negative acute findings Patient remained afebrile alert and oriented with stable vital signs during ER evaluation. Discussed results with patient, and copy of report was provided. On re-examination, patient is resting comfortably in no acute distress. Patient reports improvement of symptoms. Patient feels comfortable going home and will be discharged. Patient given follow up instructions. Instructed to return to ER if symptoms worsen or new symptoms arise. Disposition Counseled Patient/Family Regarding: Diagnosis, Need For Followup - Disposition Disposition: HOME/ ROUTINE Disposition Time: 01:14 Condition: STABLE Additional Instructions: Follow up with the clinic in 2-5 days for further evaluation. Take medications as prescribed. Return to the emergency department at any time if symptoms persist or worsen. You may call [facility] for any assistance [phone]. Prescriptions: Meclizine [Meclizine*] 25 mg PO Q6 #30 tab Instructions: Near Fainting (DC) Forms: [employer] (Lao) - POA Present On Arrival: None - Clinical Impression Clinical Impression: Near syncope, Dizziness - Scribe Statement The provider has reviewed the documentation as recorded by the Scribe (Kaity Salamanca) All medical record entries made by the Scribe were at my direction and personally dictated by me. I have reviewed the chart and agree that the record accurately reflects my personal performance of the history, physical exam, medical decision making, and the department course for this patient. I have also personally directed, reviewed, and agree with the discharge instructions and disposition.
[2018-03-31] MEDS ORDERED: Bacitracin 500 Units/gm Oint Foilpak UD ONE (21:14)
[2018-03-31 21:21] LABS: BASO # 0.1 K/uL (0.0-0.2); BASO % 0.8 % (0.0-2.0); EOS # 0.2 K/uL (0.0-0.7); EOS % 2.4 % (0.0-4.0); HEMOGLOBIN 14.3 g/dL (12.0-18.0); MEAN CELL VOLUME 94.1 fL (80.0-94.0); MEAN CORPUSCULAR HEMOGLOBIN 31.9 pg (27.0-31.0); MEAN CORPUSCULAR HGB CONC 33.9 g/dL (33.0-37.0); MEAN PLATELET VOLUME 7.6 fL (7.2-11.7); MONO # 0.7 K/uL (0.0-0.8); MONO % 7.1 % (0.0-10.0); NEUT # 5.4 K/uL (1.8-7.0); NEUT % 57.7 % (50.0-75.0); NRBC % 0.1 % (0.0-2.0); RBC 4.47 Mil/uL (4.40-5.90); RED CELL DISTRIBUTION WIDTH 13.9 % (11.5-14.5); WHITE BLOOD COUNT 9.3 K/uL (4.8-10.8)
[2018-03-31 21:36] LABS: ALB/GLOB RATIO 1.7 (1.0-2.1); ALBUMIN 4.3 g/dL (3.5-5.0); ALT/SGPT 33 U/L (21-72); AST/SGOT 20 U/L (17-59); BLOOD UREA NITROGEN 12 mg/dL (9-20); CALCIUM 9.2 mg/dl (8.6-10.4); GFR NON-AFRICAN AMERICAN > 60
[2018-03-31 22:02] LABS: URINE BILIRUBIN NEGATIVE (NEGATIVE); URINE BLOOD NEGATIVE (NEGATIVE); URINE CLARITY Clear (Clear); URINE COLOR Yellow (YELLOW); URINE GLUCOSE (UA) NORMAL (Normal); URINE LEUKOCYTE ESTERASE NEG Leu/uL (Negative); URINE PROTEIN NEGATIVE (NEGATIVE); URINE UROBILINOGEN NORMAL mg/dL (0.2-1.0)
[2018-03-31 22:47] LABS: BARBITURATES, UR NEGATIVE (NEGATIVE); BENZODIAZEPINES, UR NEGATIVE (NEGATIVE); OPIATES, UR NEGATIVE (NEGATIVE)
[2018-03-31 22:49] LABS: PHENCYCLIDINE, UR POSITIVE (NEGATIVE)
[2018-04-01] MEDS ORDERED: Bacitracin 500 Units/gm Oint Foilpak UD ONE (01:29)
[2018-04-01 01:32] VITALS: BP 121/82; PULSE 75; RESP 16
[2018-04-01 01:35] VITALS: O2SAT 97
--- NOTE | 2018-04-01 10:41 | CT ---
Date of service: 03/31/2018 PROCEDURE: CT HEAD WITHOUT CONTRAST. HISTORY: dizzy, headache COMPARISON: None available. TECHNIQUE: Axial computed tomography images were obtained through the head/brain without intravenous contrast. Radiation dose: Total exam DLP = 1081.66 mGy-cm. This CT exam was performed using one or more of the following dose reduction techniques: Automated exposure control, adjustment of the mA and/or kV according to patient size, and/or use of iterative reconstruction technique. FINDINGS: HEMORRHAGE: No intracranial hemorrhage. BRAIN: No mass effect or edema. No atrophy or chronic microvascular ischemic changes. Please note that chest x-ray has limited sensitivity for the detection of pulmonary masses. VENTRICLES: No hydrocephalus. CALVARIUM: Unremarkable. PARANASAL SINUSES: Unremarkable as visualized. No significant inflammatory changes. MASTOID AIR CELLS: Unremarkable as visualized. No inflammatory changes. OTHER FINDINGS: Partial opacification of the left external auditory canal, likely cerumen. IMPRESSION: No acute intracranial pathology identified. Preliminary impression was provided by [employer]
== END 2018-04-01 01:30 | disposition home or self-care (01) ==
LOC: C.ER 20:35
DX: R42 Dizziness and giddiness (principal); R55 Syncope and collapse; F20.9 Schizophrenia, unspecified; Z72.0 Tobacco use
CPT/HCPCS: 70450; 80053; 81001; 85025; 96365; 99285; G0480; J2765; J7030

== ENCOUNTER 2018-04-03 00:16 | Emergency (ER) | payer MEDICARE, OTHER ==
[2018-04-03 00:16] VITALS: BMI 32.0
[2018-04-03 00:39] VITALS: RESP 16
--- NOTE | 2018-04-03 01:26 | C.PDOC ---
History Of Present Illness 27 year old male presents to the ED c/o dental pain for the past 3 days. Patient reports his pain is mostly in the left lower molar area. Patient reports he took OTC pain medications with no relief. Patient states he is going to make a Dentist appointment tomorrow but needs pain medications tonight. Patient denies fever, chills, nausea, vomit, facial swelling, injury, fall, trauma. Time Seen by Provider: 04/03/18 01:02 Chief Complaint (Nursing): Dental Pain History Per: Patient History/Exam Limitations: no limitations Onset/Duration Of Symptoms: Days (3) Current Symptoms Are (Timing): Still Present Quality: Positive for: "Pain" Recent travel outside of the [place]: No Additional History Per: Patient Past Medical History Reviewed: Historical Data, Nursing Documentation, Vital Signs Vital Signs: Last Vital Signs Temp 98 F 04/03/18 00:31 Pulse 77 04/03/18 00:31 Resp 16 04/03/18 00:31 BP 124/84 04/03/18 00:31 Pulse Ox 97 04/03/18 00:31 - Medical History PMH: Anxiety, Arthritis, Asthma, Bipolar Disorder, Depression, Migraine, Post Traumatic Stress Disorder, Schizophrenia Denies: Diabetes, Hepatitis, HIV, HTN, Chronic Kidney Disease, Seizures, Sexually Transmitted Disease Surgical History: No Surg Hx - [facility] Procedures DRUG ADDICT COUNSELLING (12/30/14) EXCISION OF TOE NAIL, EXTERNAL APPROACH (10/08/16) EXTRACTION OF TOE NAIL, EXTERNAL APPROACH (11/30/16) GROUP PSYCHOTHERAPY (11/29/17) INDIVID PSYCHOTHERAP NEC (08/12/14) INDIVIDUAL PSYCHOTHERAPY, BEHAVIORAL (11/29/17) INDIVIDUAL PSYCHOTHERAPY, COGNITIVE-BEHAVIORAL (09/11/16) INDIVIDUAL PSYCHOTHERAPY, SUPPORTIVE (08/28/17) INTRODUCTION OF SERUM/TOX/VACCINE INTO MUSCLE, PERC APPROACH (09/11/16) MEDICATION MANAGEMENT (10/08/16) OTHER GROUP THERAPY (12/30/14) PSYCHIAT DRUG THERAP NEC (07/08/14) Family History: States: Unknown Family Hx - Social History Hx Tobacco Use: Yes Hx Alcohol Use: No Hx Substance Use: Yes - Immunization History Hx Tetanus Toxoid Vaccination: Yes Hx Influenza Vaccination: Yes Hx Pneumococcal Vaccination: No Review Of Systems Constitutional: Negative for: Fever, Chills ENT: Positive for: Mouth Pain. Negative for: Throat Pain, Throat Swelling Cardiovascular: Negative for: Chest Pain Respiratory: Negative for: Cough, Shortness of Breath Gastrointestinal: Negative for: Nausea, Vomiting Neurological: Negative for: Weakness, Numbness Physical Exam - Physical Exam Appears: Non-toxic, No Acute Distress Skin: Normal Color, Warm, Dry Head: Atraumatic, Normacephalic Eye(s): bilateral: Normal Inspection Oral Mucosa: Moist Tongue: No Swelling Lips: No Swelling Teeth: Edentulous, Other (tooth decay remaining left posterior molar) Gingiva: No Erythema, No Swelling, No Bleeding Throat: Normal, No Erythema, No Exudate Neck: Normal ROM, No Midline Cervical Tenderness, Supple Neurological/Psych: Oriented x3, Normal Speech, Normal Cognition Gait: Steady ED Course And Treatment O2 Sat by Pulse Oximetry: 97 (ON RA) Pulse Ox Interpretation: Normal Progress Note: Plan: - Toradol 30 mg IM. On reassessment, patient is resting comfortably, and is in no acute distress. Patient was instructed to follow up with physician/clinic in 1-2 days for further evaluation. 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 - Scribe Statement The provider has reviewed the documentation as recorded by the Scribe Arjun Garrett All medical record entries made by the Bekahibjero were at my direction and personally dictated by me. I have reviewed the chart and agree that the record accurately reflects my personal performance of the history, physical exam, medical decision making, and the department course for this patient. I have also personally directed, reviewed, and agree with the discharge instructions and disposition.
[2018-04-03 01:47] VITALS: BP 128/80; PULSE 74; TEMP 98
[2018-04-03 02:27] VITALS: O2SAT 97
== END 2018-04-03 01:47 | disposition home or self-care (01) ==
LOC: C.ER 00:16
DX: K02.9 Dental caries, unspecified (principal); F20.9 Schizophrenia, unspecified; Z72.0 Tobacco use
CPT/HCPCS: 96372; 99283; J1885

== ENCOUNTER 2018-04-24 02:15 | Emergency (ER) | payer MEDICARE, OTHER ==
[2018-04-24 02:17] VITALS: BMI 32.0
[2018-04-24] MEDS ORDERED: Sodium Chloride 0.9% 1,000 ML IV ONE (02:43)
[2018-04-24] MEDS ORDERED: Sodium Chloride 0.9% 1,000 ML ONE (03:03)
[2018-04-24 03:05] LABS: BASO # 0.1 K/uL (0.0-0.2); BASO % 0.6 % (0.0-2.0); EOS # 0.3 K/uL (0.0-0.7); EOS % 2.7 % (0.0-4.0); HEMOGLOBIN 15.5 g/dL (12.0-18.0); LYMPH # 3.2 K/uL (1.0-4.3); LYMPH % 31.7 % (20.0-40.0); MEAN CELL VOLUME 93.8 fL (80.0-94.0); MEAN CORPUSCULAR HGB CONC 34.1 g/dL (33.0-37.0); MEAN PLATELET VOLUME 7.8 fL (7.2-11.7); MONO # 0.8 K/uL (0.0-0.8); MONO % 8.2 % (0.0-10.0); NEUT # 5.8 K/uL (1.8-7.0); NEUT % 56.8 % (50.0-75.0); NRBC % 0.1 % (0.0-2.0); RBC 4.86 Mil/uL (4.40-5.90); RED CELL DISTRIBUTION WIDTH 14.2 % (11.5-14.5); WHITE BLOOD COUNT 10.2 K/uL (4.8-10.8)
[2018-04-24 03:15] LABS: URINE BILIRUBIN NEGATIVE (NEGATIVE); URINE BLOOD NEGATIVE (NEGATIVE); URINE CLARITY Clear (Clear); URINE COLOR Yellow (YELLOW); URINE GLUCOSE (UA) NORMAL (Normal); URINE LEUKOCYTE ESTERASE NEG Leu/uL (Negative); URINE PROTEIN NEGATIVE (NEGATIVE); URINE UROBILINOGEN NORMAL mg/dL (0.2-1.0)
[2018-04-24 03:19] LABS: ALB/GLOB RATIO 1.7 (1.0-2.1); ALBUMIN 4.6 g/dL (3.5-5.0); ALT/SGPT 58 U/L (21-72); AST/SGOT 47 U/L (17-59); BLOOD UREA NITROGEN 16 mg/dL (9-20); CALCIUM 9.6 mg/dl (8.6-10.4); GFR NON-AFRICAN AMERICAN > 60; LIPASE 124 U/L (23-300)
[2018-04-24 03:28] LABS: BARBITURATES, UR POSITIVE (NEGATIVE); BENZODIAZEPINES, UR NEGATIVE (NEGATIVE); OPIATES, UR NEGATIVE (NEGATIVE); PHENCYCLIDINE, UR POSITIVE (NEGATIVE)
--- NOTE | 2018-04-24 04:23 | C.PDOC ---
History Of Present Illness 27 year old male presents to the ED c/o vomiting "black stuff" that started yesterday. Patient reports after vomiting he had [place] food and was able to tolerate it. Patient denies fever, chills, diarrhea, blood in the stool, abdomi nal pain, dyuria, hematuria, bruising, history of similar symptoms. Time Seen by Provider: 04/24/18 02:21 Chief Complaint (Nursing): GI Problem History Per: Patient History/Exam Limitations: no limitations Onset/Duration Of Symptoms: Days Current Symptoms Are (Timing): Still Present Radiation Of Pain To:: None Quality Of Discomfort: "Pain" Associated Symptoms: Nausea, Vomiting. denies: Diarrhea, Loss Of Appetite, Urinary Symptoms Recent travel outside of the [place]: No Additional History Per: Patient Past Medical History Reviewed: Historical Data, Nursing Documentation, Vital Signs Vital Signs: Last Vital Signs Temp 97.6 F 04/24/18 02:23 Pulse 68 04/24/18 02:23 Resp 18 04/24/18 02:23 BP 103/70 04/24/18 02:23 Pulse Ox 99 04/24/18 02:23 - Medical History PMH: Anxiety, Arthritis, Asthma, Bipolar Disorder, Depression, Migraine, Post Traumatic Stress Disorder, Schizophrenia Denies: Diabetes, Hepatitis, HIV, HTN, Chronic Kidney Disease, Seizures, Sexually Transmitted Disease Surgical History: No Surg Hx - [facility] Procedures DRUG ADDICT COUNSELLING (12/30/14) EXCISION OF TOE NAIL, EXTERNAL APPROACH (10/08/16) EXTRACTION OF TOE NAIL, EXTERNAL APPROACH (11/30/16) GROUP PSYCHOTHERAPY (11/29/17) INDIVID PSYCHOTHERAP NEC (08/12/14) INDIVIDUAL PSYCHOTHERAPY, BEHAVIORAL (11/29/17) INDIVIDUAL PSYCHOTHERAPY, COGNITIVE-BEHAVIORAL (09/11/16) INDIVIDUAL PSYCHOTHERAPY, SUPPORTIVE (08/28/17) INTRODUCTION OF SERUM/TOX/VACCINE INTO MUSCLE, PERC APPROACH (09/11/16) MEDICATION MANAGEMENT (10/08/16) OTHER GROUP THERAPY (12/30/14) PSYCHIAT DRUG THERAP NEC (07/08/14) Family History: States: Unknown Family Hx - Social History Hx Tobacco Use: Yes Hx Alcohol Use: No Hx Substance Use: Yes (DENIES THIS VISIT) - Immunization History Hx Tetanus Toxoid Vaccination: Yes Hx Influenza Vaccination: Yes Hx Pneumococcal Vaccination: No Review Of Systems Constitutional: Negative for: Fever, Chills Cardiovascular: Negative for: Chest Pain Respiratory: Negative for: Shortness of Breath Gastrointestinal: Positive for: Nausea, Vomiting. Negative for: Abdominal Pain, Diarrhea Genitourinary: Negative for: Dysuria, Hematuria Musculoskeletal: Negative for: Back Pain Skin: Negative for: Rash Physical Exam - Physical Exam Appears: Well, Non-toxic, No Acute Distress (pt is laying flat, sleeping on initial evaluation) Skin: Normal Color, Warm, Dry Head: Atraumatic, Normacephalic Eye(s): bilateral: Normal Inspection, EOMI Nose: Normal Oral Mucosa: Moist Neck: Normal ROM, Supple Chest: Symmetrical Cardiovascular: Rhythm Regular Respiratory: Normal Breath Sounds, No Rales, No Rhonchi, No Wheezing Gastrointestinal/Abdominal: Soft, No Tenderness, No Guarding, No Rebound Extremity: Normal ROM, No Tenderness, No Swelling Neurological/Psych: Oriented x3, Normal Speech, Normal Cognition Gait: Steady ED Course And Treatment - Laboratory Results Result Diagrams: 04/24/18 03:02 04/24/18 03:02 O2 Sat by Pulse Oximetry: 99 (ON RA) Pulse Ox Interpretation: Normal Progress Note: Plan: - Labs. - Protonix 40 mg IVP. - IV fluids. - Toradol 30 mg IVP. - Zofran 4 mg IVP. - UA. On re-evaluation, Patient is resting comfortably, abdomen remains soft, and patient is tolerating PO. No evidence of GI bleed - stool occult neg. Pt has no abd pian and is tolerating po. Patient feels comfortable going home. Pt instructed to follo wup with PMD/GI in 1-2 days or return to ER if symptoms persist or worsen. Disposition - Disposition Disposition: HOME/ ROUTINE Disposition Time: 04:44 Condition: STABLE Additional Instructions: Follow up with your primary medical doctor or clinic in 2-5 days for further evaluation. Take medications as prescribed. Return to the emergency department at any time if symptoms persist or worsen. Instructions: Nausea and Vomiting, Adult (DC) Forms: [facility] (Irish) - Clinical Impression Clinical Impression: Vomiting - PA / ICU CLERK / Resident Statement MD/DO has reviewed & agrees with the documentation as recorded. - Scribe Statement The provider has reviewed the documentation as recorded by the Scribe Arjun Garrett All medical record entries made by the Scribe were at my direction and personally dictated by me. I have reviewed the chart and agree that the record accurately reflects my personal performance of the history, physical exam, medical decision making, and the department course for this patient. I have also personally directed, reviewed, and agree with the discharge instructions and disposition.
[2018-04-24 05:02] VITALS: BP 122/76; PULSE 79; RESP 22; TEMP 97.5
[2018-04-26 15:12] VITALS: O2SAT 99
== END 2018-04-24 04:55 | disposition home or self-care (01) ==
LOC: C.ER 02:15
DX: R11.10 Vomiting, unspecified (principal)
CPT/HCPCS: 80053; 81001; 83690; 85025; 96361; 96374; 96375; 99284; C9113; G0328; G0480; J1885; J2405; J7030